=== PATIENT | male | born 1955 | race Caucasian/White ===

== ENCOUNTER 2018-02-17 23:00 | Emergency (ER) | payer OTHER, SELFPAY ==
[2018-02-17 23:01] VITALS: BP 133/99; PULSE 94; RESP 16; TEMP 37.3; O2SAT 96; BMI 34.0
--- NOTE | 2018-02-17 23:16 | CT_ITS ---
STUDY: CT ABDOMEN AND PELVIS WITHOUT CONTRAST REASON FOR EXAM: Male, 62 years old. LEFT flank pain RADIATION DOSAGE (If Supplied By Facility): CTDIvol = ( 14.44 ) mGy, DLP = ( 1121.86 ) mGycm TECHNIQUE: Transaxial images were obtained from the dome of the diaphragm to the symphysis pubis without oral contrast, and without intravenous contrast. Sagittal and coronal images were reconstructed. Individualized dose optimization techniques were used for this CT. COMPARISON: None. FINDINGS: The visualized lung bases are unremarkable. The visualized portions of the heart are within normal limits. There is a 3 cm cyst in the LEFT lobe of liver. There is NO liver mass. Normal gallbladder and extrahepatic biliary system. Normal spleen. Normal pancreas. Normal bilateral adrenal glands. There are bilateral kidney stones. There is a 3 mm stone in the proximal LEFT ureter causing mild LEFT hydronephrosis. Normal visualized stomach. Normal small intestine. There are diverticula of the colon. There is NO diverticulitis or colitis. There is NO obstruction or mass. The appendix is visualized and appears normal. There is diffuse atherosclerotic calcification of the abdominal aorta, without a demonstrated aneurysm. Normal inferior vena cava. Normal retroperitoneum. Normal urinary bladder. There is NO ascites or free air, abscess or adenopathy. Normal abdominal wall. Normal osseous structures. CT/Abdomen/Pelvis without Cont IMPRESSION: There are bilateral kidney stones. There is a 3 mm stone in the proximal LEFT ureter causing mild LEFT hydronephrosis. There are diverticula of the colon. There is NO diverticulitis or colitis. There is NO obstruction or mass. The appendix is visualized and appears normal. There is diffuse atherosclerotic calcification of the abdominal aorta, without a demonstrated aneurysm. There is NO ascites or free air, abscess or adenopathy. Electronically Signed: Rickey Albrecht MD at 1:03 EDT , Service support ,
[2018-02-17] MEDS: 0.9% Normal Saline 1,000 ML 125 ML IV (23:49)
[2018-02-17 23:53] LABS: Absolute Lymphocyte Count 1.32 X10^3/ul (0.83-4.51); Absolute Neutrophil Count 4.5 X10^3/uL (2.0-7.7); Basophil# 0.04 X10^3/uL; Basophil% 0.6 % (0-1); Eosinophil# 0.21 X10^3/uL; Eosinophils% 3.1 % (0-5); Hematocrit 42.6 % (40-54); Hemoglobin 14.8 g/dl (13.0-16.5); Lymphocyte # 1.32 X10^3/ul (4.0); Lymphocyte % 19.4 % (19-41); Mean Corp Hgb Conc 34.7 g/gl (32-36); Mean Corpuscular Hgb 29.5 pg (27.0-32.0); Mean Corpuscular Volume 84.9 fL (80-94); Monocyte# 0.73 X10^3/uL; Monocyte% 10.8 % (0-10); Neutrophil # 4.47 X10^3/uL (2.7-7.7); Neutrophil % 65.8 % (47-70); Platelet Count 236 K/mm3 (150-450); RBC Distribution Width CV 12.9 % (11.6-14.6); RBC Distribution Width SD 39.8 fl (35.1-43.9); Red Blood Count 5.02 M/mm3 (4.6-6.2); White Blood Count 6.8 K/mm3 (4.4-11.0)
[2018-02-17 23:54] LABS: POSITIVE COUNT NO; POSITIVE DIFFERENTIAL NO; POSITIVE MORPHOLOGY NO
[2018-02-17 23:57] LABS: White Blood Cells 0 SEEN /hpf (0-5)
[2018-02-17 23:58] LABS: Color, Urine Yellow (Yellow); Glucose, Dipstick 100 mg/dl (Normal); Ketone-Dipstick Negative (Negative); Leukocyte Esterase-Dipstick Negative /ul (Negative); Nitrite-Dipstick Negative (Negative); Occult Blood-Urine 150 /ul (Negative); Protein-Dipstick 15 mg/dl (Negative); Specific Gravity, Urine 1.025 (1.002-1.030); Urine Bilirubin Dipstick Negative (Negative); Urine Clarity Sl. Cloudy (Clear); Urine Urobilinogen Normal (Normal)
[2018-02-18 00:03] LABS: Anion Gap 11 (5-15); BUN 24 mg/dL (7-18); BUN/Creat Ratio 13.2 RATIO (10-20); Chloride 105 mmol/L (98-107); Creatinine, Serum 1.82 mg/dL (0.70-1.30); EST Glomerular Filtration Rate 40 mL/min (>60); Est Glom Filt Rate - Afr Amer 49 mL/min (>60); Estimated Creatinine Clearance 44.82 ml/min; Glucose 231 mg/dL (74-106); Sodium Level 140 mmol/L (136-145)
[2018-02-18 00:11] LABS: Bacteria RARE /hpf (None Seen); Mucous, Urine 1+ /hpf (<or=2+); Red Blood Cells-Urine 5-10 SEEN /hpf (0-5); Squamous Epithelial Cells - UA 0-5 SEEN /hpf (0-5)
[2018-02-18 01:32] VITALS: BP 164/92; PULSE 67; RESP 16; O2SAT 99
--- NOTE | 2018-02-18 01:39 | ED.VISSUMM ---
- ER Visit Summary Date of Service: 02/18/18 Chief Complaint: [] History of Present Illness: The patient is a 62 M [abdominal pain presents the emergency department with abdominal pain since 9 AM. Patient states pain is a 6 or 7 out of 10. Patient states the pains in his back and at times radiates into his left testicle. Patient states the pain started while he was having a bowel movement this morning and urinating. Patient states the pain is worse with sitting. Patient has had a history of kidney stones in the past. Patient is a diabetic. Patient denies any fevers. Patient denies nausea or vomiting.] Physical Examination: [HEENT-PERRLA, EOMI. Cranial nerves II through XII grossly intact. TMs clear. Mucous membranes moist. No adenopathy. Cardiovascular-regular rate and rhythm without murmur or ectopy Lungs-clear to auscultation, chest wall stable without crepitus or subcu emphysema Abdomen-normoactive bowel sounds, soft. Patient has tenderness over left lower quadrant and CVA tenderness on the left. There is no rebound, rigidity, or perineal signs. Extremities-intact ?4, normal range of motion, normal pulses, atraumatic] Test Results: [CBC with differential obtained showed white count 6.8, heme globin 14.8, hematocrit 43, platelets 236. Chemistries unremarkable. BUN 24 and creatinine is 1.82. Glucose was 231. Urinalysis showed 5-10 RBCs but no signs of infection. CT flank showed a 3 mm stone proximal left ureter with hydronephrosis.] Emergency Department Course and Treatment: [Patient initially did not want anything for pain but after his results return he did except pain medication. Patient was medicated with 50 mg of Toradol IV, 4 mg of morphine, and 4 mg of Zofran IV.] Treatment Plan: [Patient will be given a prescription for [place], Zofran, and Naprosyn as well as urine strainers. 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 It may contain incorrect words, spelling, and punctuation that were not noted in review of the chart prior to signing ED Disposition - Plan for ED Patient: Chief Complaint: Abd Pain Referrals: Oswald Hills MD [Primary Care Provider] -
--- NOTE | 2018-02-18 01:42 | ED.DCSUM_ITS ---
- ER Visit Summary Date of Service: 02/18/18 Chief Complaint: [] History of Present Illness: The patient is a 62 M [abdominal pain presents the emergency department with abdominal pain since 9 AM. Patient states pain is a 6 or 7 out of 10. Patient states the pains in his back and at times radiates into his left testicle. Patient states the pain started while he was having a bowel movement this morning and urinating. Patient states the pain is worse with sitting. Patient has had a history of kidney stones in the past. Patient is a diabetic. Patient denies any fevers. Patient denies nausea or vomiting.] Physical Examination: [HEENT-PERRLA, EOMI. Cranial nerves II through XII grossly intact. TMs clear. Mucous membranes moist. No adenopathy. Cardiovascular-regular rate and rhythm without murmur or ectopy Lungs-clear to auscultation, chest wall stable without crepitus or subcu emphysema Abdomen-normoactive bowel sounds, soft. Patient has tenderness over left lower quadrant and CVA tenderness on the left. There is no rebound, rigidity, or perineal signs. Extremities-intact ?4, normal range of motion, normal pulses, atraumatic] Test Results: [CBC with differential obtained showed white count 6.8, heme globin 14.8, hematocrit 43, platelets 236. Chemistries unremarkable. BUN 24 and creatinine is 1.82. Glucose was 231. Urinalysis showed 5-10 RBCs but no signs of infection. CT flank showed a 3 mm stone proximal left ureter with hydronephrosis.] Emergency Department Course and Treatment: [Patient initially did not want anything for pain but after his results return he did except pain medication. Patient was medicated with 50 mg of Toradol IV, 4 mg of morphine, and 4 mg of Zofran IV.] Treatment Plan: [Patient will be given a prescription for [place], Zofran, and Naprosyn as well as urine strainers. 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 It may contain incorrect words, spelling, and punctuation that were not noted in review of the chart prior to signing ED Disposition - Plan for ED Patient: Chief Complaint: Abd Pain Referrals: Oswald Hills MD [Primary Care Provider] -
--- NOTE | 2018-02-18 01:44 | DCINST.ED_ITS ---
ED Disposition - Plan for ED Patient: Chief Complaint: Abd Pain Instructions: ED Stone Renal W Colic Prescriptions: Ondansetron [Zofran Odt] 4 mg PO Q8H PRN PRN #10 tab PRN Reason: Nausea Hydrocodone/Acetaminophen [[place] 5-325 Tablet] 1 - 2 ea PO 4X/DAY PRN PRN 5 Days #20 tab PRN Reason: Pain Naproxen [Naprosyn] 500 mg PO BID PRN #20 tab Referrals: Oswald Hills MD [Primary Care Provider] - Jayson Edwards MD [STAFF PHYSICIAN] - 3-5 Days
[2018-02-18] MEDS: Ondansetron 4 MG/2 ML Vial IV (01:50)
[2018-02-18] MEDS: Morphine 4 MG/ML Syringe IV (01:50)
[2018-02-18] MEDS: Ketorolac 15 MG/ML Vial IV (01:50)
[2018-02-18] MEDS: HYDROcodone Bitartrate/Apap 5/325 Tablet PO (02:07)
[2018-02-18 02:17] VITALS: BP 130/72; PULSE 78; RESP 14; O2SAT 97
== END 2018-02-18 02:19 | disposition home or self-care (01) ==
LOC: ED 23:30
PROVIDERS: Emergency Provider Emergency Medicine; Family Provider Family Medicine; PCP Family Medicine
DX: N13.2 Hydronephrosis with renal and ureteral calculous obstruction (principal); E11.9 Type 2 diabetes mellitus without complications; Z87.442 Personal history of urinary calculi
CPT/HCPCS: 74176; 80048; 81001; 85025; 99283; J7030; A4216; J2405